=== PATIENT | female | born 1985 | race African-American/Black ===

== ENCOUNTER 2021-02-14 12:31 | Emergency (ER) | payer OTHER ==
[~2021-02-14] VITALS: Ht 157.5 cm; Wt 85.7 kg
[~2021-02-14 12:31] MED LIST: CEFDINIR300 MG PO; CLARITIN-D 121 EAC1 PO; IBUPROFEN 600600 M1 PO; NOHOMEMEDICATIONS; PROVENTIL HFA6.7 G1 INH
[2021-02-14 12:32] VITALS: BP 138/82
[2021-02-14] MEDS ORDERED: IPRAT-ALBUT 0.5-3 ML INH (13:48)
[2021-02-14] MEDS ORDERED: NEBULIZER MISCELL (13:48)
[2021-02-14] MEDS ORDERED: PREDNISONE50 MG PO (13:48)
--- NOTE | 2021-02-15 07:36 | EKG ---
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
== END 2021-02-14 13:50 | disposition home or self-care (01) ==
LOC: ER 12:31
DX: J45.901 Unspecified asthma with (acute) exacerbation (principal); Z20.822 Contact with and (suspected) exposure to COVID-19; Z88.0 Allergy status to penicillin